=== PATIENT | male | born 2000 | race Caucasian/White ===

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

== ENCOUNTER 2019-12-09 22:03 | Emergency (ER) | payer OTHER, BC ==
[~2019-12-09] VITALS: Ht 182.9 cm; Wt 104.3 kg
== END 2019-12-09 23:47 | disposition home or self-care (01) ==
LOC: ED 22:03
DX: B34.9 Viral infection, unspecified (principal); F17.200 Nicotine dependence, unspecified, uncomplicated; Z90.89 Acquired absence of other organs
CPT/HCPCS: 71046; 87502; 87880; 99283-25